=== PATIENT | female | born 1995 | race African-American/Black ===

== ENCOUNTER 2019-01-27 22:21 | Emergency (ER) | payer SELFPAY ==
[~2019-01-27] VITALS: Ht 160 cm; Wt 57.0 kg
[2019-01-27] MEDS ORDERED: KETOROLAC 30MG/ML VIAL IV STA (23:37)
[2019-01-27] MEDS ORDERED: ONDANSETRON HCL 4MG/2ML INJ IV ONE (23:45)
[2019-01-27] MEDS ORDERED: SODIUM CHLORIDE 0.9% 1000ML BAG (SEPSIS BOLUS) IV ONE (23:45)
[2019-01-28 00:12] LABS: CLARITY URINE TURBID (CLEAR); COLOR URINE YELLOW (YELLOW); KETONES URINE 1+ (NEGATIVE); LEUKOCYTE ESTERASE URINE 1+ (NEGATIVE); NITRITE URINE NEGATIVE (NEGATIVE); OCCULT BLOOD URINE 3+ (NEGATIVE); PROTEIN URINE 1+ (NEGATIVE); SPECIFIC GRAVITY URINE 1.029 (1.005-1.030); UROBILINOGEN URINE 0.2 E.U./dL (0.2-1.0)
[2019-01-28] MEDS ORDERED: CEPHALEXIN 250MG CAPSULE PO ONE (02:15)
[2019-01-28 02:20] VITALS: BP 103/57
== END 2019-01-28 02:37 | disposition home or self-care (01) ==
LOC: ER 22:21
DX: N39.0 Urinary tract infection, site not specified (principal); J11.1 Influenza due to unidentified influenza virus with other respiratory manifestations; J45.909 Unspecified asthma, uncomplicated
CPT/HCPCS: 71045; 81003; 87086; 87804; 96361; 96374; 96375; 99284; J1885; J2405; J7030